=== PATIENT | female | born 1990 | race Caucasian/White ===

== ENCOUNTER 2021-11-04 09:26 | Inpatient (IN) | payer OTHER, SELFPAY ==
[~2021-11-04] VITALS: Ht 157.5 cm; Wt 114.3 kg
[2021-11-04] MEDS ORDERED: CARBOPROST 250 MCG/ML AMP IM PRN (09:30)
[2021-11-04] MEDS ORDERED: METHYLERGONOVINE 0.2 MG/ML AMP IM PRN (09:30)
[2021-11-04 10:00] VITALS: BP 102/53
[2021-11-04] MEDS ORDERED: OXYTOCIN 20 UNITS in LACTATED RINGERS 1,000 ML IV SCH (10:00)
[2021-11-04] MEDS: LACTATED RINGERS 1,000 ML IV SCH ×2 (11:10→21:52)
[2021-11-04 11:17] LABS: BASOPHILS % (AUTO) 0.4 % (0.0-2.0); EOSINOPHILS # (AUTO) 0.1 K/uL (0-0.4); EOSINOPHILS % (AUTO) 1.6 % (0.0-4.0); HEMATOCRIT 36.7 % (36-48); HEMOGLOBIN 12.3 g/dL (12.0-16.0); LYMPHOCYTES # (AUTO) 1.5 K/uL (2.5-16.5); MEAN CORPUSCULAR HEMOGLOBIN 28 pg (27-31); MEAN CORPUSCULAR HGB CONC 34 g/dL (33-37); MEAN CORPUSCULAR VOLUME 83.5 fL (80-94); MONOCYTES # (AUTO) 0.5 K/uL (0.8-1.0); NEUTROPHILS # (AUTO) 6.7 K/uL (1.8-7.7); PLATELET COUNT (AUTO) 249 K/uL (140-450); RED BLOOD CELL COUNT(AUTO) 4.39 MIL/uL (4.20-5.40); RED CELL DISTRIBUTION WIDTH 15.5 % (11.6-13.7); WHITE BLOOD COUNT (AUTO) 8.9 K/uL (4.8-10.8)
[2021-11-04 11:29] LABS: APPEARANCE,URINE CLEAR (CLEAR); BILIRUBIN,URINE 1+ (NEGATIVE); BLOOD, URINE NEGATIVE (NEGATIVE); COLOR,URINE YELLOW (YELLOW); LEUKOCYTE ESTERASE ,URINE NEGATIVE (NEGATIVE); NITRITE, URINE NEGATIVE (NEGATIVE); UGLUCOSE NEGATIVE (NEGATIVE)
[2021-11-04] MEDS: MISOPROSTOL 25 MCG TAB VG SCH ×2 (11:30→17:27)
[2021-11-04 11:48] LABS: ALBUMIN 2.6 g/dL (3.4-5.0); ANION GAP 14.4 (8-16); CARBON DIOXIDE 21.3 mmol/L (21-32); CREATININE 0.6 mg/dL (0.6-1.3); POTASSIUM 3.7 mmol/L (3.5-5.1); TOTAL BILIRUBIN 0.2 mg/dL (0.0-1.0)
[2021-11-04] MEDS ORDERED: PNV91TAB8 PO (19:23)
[2021-11-04] MEDS ORDERED: METF-350 PO (19:23)
[2021-11-04] MEDS ORDERED: MORPHINE SULFATE 5 MG/ML VIAL IVP PRN (20:35)
[2021-11-05] MEDS: LACTATED RINGERS 1,000 ML IV SCH (00:01)
[2021-11-05] MEDS ORDERED: MORPHINE SULFATE 10 MG/ML VIAL ONE ×2 (01:41→22:35)
[2021-11-05] MEDS: ONDANSETRON 4 MG/2 ML VIAL IVP PRN ×3 (01:49→22:42)
[2021-11-05] MEDS ORDERED: OXYTOCIN 20 UNITS/LR PREMIX 1,000 ML IV ONE (03:35)
[2021-11-05] MEDS ORDERED: ROPIVACAINE 0.2%/NS PREMIX 200 ML EPI ONE (09:08)
[2021-11-05] MEDS ORDERED: ROPIVACAINE 0.2%/NS PREMIX 200 ML EPI SCH (09:45)
[2021-11-05] MEDS ORDERED: PROMETHAZINE 25 MG/ML VIAL IM PRN (10:45)
[2021-11-05] MEDS ORDERED: PROMETHAZINE 25 MG/ML VIAL ONE (10:52)
--- NOTE | 2021-11-05 11:04 | NUR ---
PATIENT HAS BEEN SCREENED AND CATEGORIZED LOW NUTRITION RISK. PATIENT WILL BE SEEN WITHIN 7 DAYS OF ADMISSION. 11/10/[address]
[2021-11-05 22:43] VITALS: BP 124/81
[2021-11-06] MEDS ORDERED: BENZOCAINE/MENTHOL 20%-0.5% 60 GM CAN TP PRN (01:00)
[2021-11-06] MEDS ORDERED: MEASLES, MUMPS, AND RUBELLA 1 VIAL SQVAC ONE (01:00)
[2021-11-06] MEDS ORDERED: METHYLERGONOVINE 0.2 MG TAB PO PRN (01:00)
[2021-11-06] MEDS ORDERED: METHYLERGONOVINE 0.2 MG/ML AMP IM PRN (01:00)
[2021-11-06] MEDS ORDERED: OXYTOCIN 10 UNITS/ML VIAL IM PRN (01:00)
[2021-11-06] MEDS ORDERED: IBUPROFEN 800 MG TAB PO PRN (01:00)
[2021-11-06 05:50] LABS: HEMATOCRIT 35.4 % (36-48); HEMOGLOBIN 11.7 g/dL (12.0-16.0)
== END 2021-11-07 21:00 | disposition home or self-care (01) | DRG 807 ==
LOC: MFCC 09:26 → MLD 09:40 → MFCC 11-06 04:55
PROVIDERS: ADMIT Obstetrics & Gynecology; ATTEND Obstetrics & Gynecology
PROC: 10E0XZZ Delivery of Products of Conception, External Approach (ICD-10-PCS; principal; 2021-11-05)
PROC: 3E0R3BZ Introduction of Anesthetic Agent into Spinal Canal, Percutaneous Approach (ICD-10-PCS; 2021-11-05)
PROC: 00HU33Z Insertion of Infusion Device into Spinal Canal, Percutaneous Approach (ICD-10-PCS; 2021-11-05)
PROC: 10907ZC Drainage of Amniotic Fluid, Therapeutic from Products of Conception, Via Natural or Artificial Opening (ICD-10-PCS; 2021-11-05)
PROC: 3E0P7GC Introduction of Other Therapeutic Substance into Female Reproductive, Via Natural or Artificial Opening (ICD-10-PCS; 2021-11-05)
DX: O13.4 Gestational [pregnancy-induced] hypertension without significant proteinuria, complicating childbirth (principal); Z37.0 Single live birth; O24.429 Gestational diabetes mellitus in childbirth, unspecified control; Z3A.37 37 weeks gestation of pregnancy; O69.81X0 Labor and delivery complicated by cord around neck, without compression, not applicable or unspecified; O99.214 Obesity complicating childbirth; O25.2 Malnutrition in childbirth; O14.94 Unspecified pre-eclampsia, complicating childbirth; Z20.822 Contact with and (suspected) exposure to COVID-19
CPT/HCPCS: 36415; 51702; 59200; 59409; 76770; 76815; 80053; 81003; 85018; 85025; 86592; 86886; 86900; 86901; J2270; J2405; J2550; J2590; J2795; Q0092